=== PATIENT | female | born 1950 | race Caucasian/White ===

== ENCOUNTER → 2019-11-26 13:35 | Outpatient (BNVA) | payer MEDICARE, MEDICAID, SELFPAY | PROVIDERS: Family Provider Nurse Practitioner Family; PCP Nurse Practitioner Family; Visit Provider Nurse Practitioner Family | DX: R05 Cough (principal); J44.1 Chronic obstructive pulmonary disease with (acute) exacerbation | CPT/HCPCS: 71046 ==

== ENCOUNTER → 2021-03-16 08:05 | Outpatient (BNVA) | payer MEDICARE, MEDICAID, SELFPAY | PROVIDERS: Family Provider Nurse Practitioner Family; PCP Nurse Practitioner Family; Visit Provider Nurse Practitioner Family | DX: I10 Essential (primary) hypertension (principal); J44.9 Chronic obstructive pulmonary disease, unspecified | CPT/HCPCS: 80053; 80061; 84443; 85025 ==

== ENCOUNTER → 2021-09-07 10:15 | Outpatient (BNVA) | payer MEDICARE, MEDICAID, SELFPAY | PROVIDERS: Family Provider Nurse Practitioner Family; PCP Nurse Practitioner Family; Visit Provider Nurse Practitioner Family | DX: I10 Essential (primary) hypertension (principal) | CPT/HCPCS: 80053; 80061; 84443; 85025 ==

== ENCOUNTER → 2022-02-25 09:36 | Outpatient (BNVA) | payer MEDICARE, MEDICAID, SELFPAY | PROVIDERS: Family Provider Nurse Practitioner Family; PCP Nurse Practitioner Family; Visit Provider Nurse Practitioner Family | DX: I10 Essential (primary) hypertension (principal); J44.9 Chronic obstructive pulmonary disease, unspecified; K21.9 Gastro-esophageal reflux disease without esophagitis; J30.89 Other allergic rhinitis; Z99.81 Dependence on supplemental oxygen | CPT/HCPCS: 80053; 80061; 84443; 85025 ==

== ENCOUNTER 2022-03-02 09:04 | Emergency (ER) | payer MEDICARE, MEDICAID, SELFPAY ==
[2022-03-02 09:06] VITALS: BP 127/89; PULSE 113; RESP 22; TEMP 36.7; O2SAT 100; BMI 16.0
--- NOTE | 2022-03-02 09:06 | ED_ITS ---
HPI - SOB/Dyspnea General: Chief Complaint: Shortness of Breath/Dyspnea Stated Complaint: RESPIRATORY DISTRESS/ WHEEZING Time Seen by Provider: 03/02/22 09:06 Source: patient Mode of arrival: EMS Limitations: no limitations History of Present Illness: HPI Narrative: 71-year-old female presents to the emergency room with complaints of shortness of breath via EMS. Is progressively worsening over the last week. She still does smoke she is on 4 L by nasal cannula at home. She did receive an albuterol inhaler treatment in route but had not used any of her albuterol rescue th erapies at home prior to calling EMS. She denies any chest pain no change in sputum production or cough. No vomiting or diarrhea no fever at home. MD elicited complaint: shortness of breath and cough Pertinent past history: COPD and congestive heart failure Onset (ago): hour(s) Timing: constant Exacerbating factors: nothing Relieving factors: bronchodilators Associated symptoms: Reports chest congestion and cough; Deny abdominal pain, chest pain, diaphoresis, dizziness, extremity pain, fever(s ), hemoptysis, lightheadedness, myalgias, nausea, orthopnea, palpitations, paresthesias, polydipsia, polyuria, rash, sense of impending doom, syncope or vomiting Treatment prior to arrival: oxygen and bronchodilator Review of Systems Const: Denies: fever(s) or diaphoresis ENMT: Denies: throat pain, ear or mastoid pain, nasal discharge or nasal congestion Card: Denies: chest pain, palpitations, lightheadedness, syncope or orthopnea Resp: Reports: chest congestion; Denies: hemoptysis GI: Denies: abdominal pain, nausea or vomiting : Denies: flank pain, difficulty voiding, dysuria, urinary frequency or urinary urgency Musc: Denies: extremity pain Skin/Breast: Denies: rash or pruritus Neuro: Denies: dizziness Endo: Denies: polyuria or polydipsia PFSH ED PFSH: Medical History COPD (chronic obstructive pulmonary disease) Coronary artery disease Enrolled in chronic care management Environmental and seasonal allergies Essential hypertension Gastro-esophageal reflux disease with esophagitis GERD (gastroesophageal reflux disease) Nicotine dependence with current use Pulmonary hypertension Requires supplemental oxygen with exertion and bedtime Requires supplemental oxygen Smoker Surgical History No pertinent past surgical history Family History Family/Other CAD (coronary artery disease) Social History Smoking and tobacco status: current every day smoker Quit status (tobacco): considering quitting Alcohol intake: never Lives independently: Yes Household members: none Housing: House Marital status: / Number of children: 2 Number of grandchildren: 4 Current occupational status: disabled History of recent travel: No Current gender identity: Female Physical Exam Const: COMMON NORMALS: no acute distress GENERAL APPEARANCE: cooperative and comfortable ORIENTATION/CONSCIOUSNESS: Yes awake, Yes oriented to person, Yes oriented to place and Yes oriented to time HENMT: COMMON NORMALS: normocephalic, atraumatic and hearing grossly normal bilaterally HEAD & SCALP: normocephalic and atraumatic Neck/C-Spine: COMMON NORMALS: no JVD Resp: EFFORT & INSPECTION: Yes pursed lip breathing and Yes uses accessory muscles AUSCULTATION: rhonchi and wheezes Cardio: COMMON NORMALS: no JVD, regular rhythm and No murmurs present (Cardio) RATE: tachycardic RHYTHM: regular rhythm GI: COMMON NORMALS: Soft to palpation and No hepatosplenomegaly present AUSCULTATION: Yes normoactive bowel sounds PALPATION: Yes Soft to palpation, No Tenderness to palpation present (GI), No Guarding due to palpation present ( GI) and Yes No hepatosplenomegaly present Extremity: COMMON NORMALS: normal to inspection, capillary refill normal, no clubbing, cyanosis or edema, no calf tenderness and no pedal edema Neuro: SENSORIUM/ORIENTATION: Yes oriented to person, Yes oriented to place and Yes oriented to time Skin: COMMON NORMALS: no rashes or lesions noted GENERAL SKIN EXAM: no rashes or lesions noted Course Vital Signs: Vital signs: Vital Signs Temperature 98.1 F 03/02/22 09:06 Pulse Rate 109 H 03/02/22 10:45 Respiratory Rate 21 H 03/02/22 10:45 Blood Pressure 147/86 03/02/22 10:45 Pulse Oximetry 99 03/02/22 10:45 MDM - SOB/Dyspnea Medical Decision Making Acute exacerbation of COPD. She is doing much better after nebulizer treatments and low-dose steroids in the past with higher dose she has had a lot of side effect ipratropium for rescue nebulizer. Decrease her oxygen to 2 L/min she has been running at 4 and is retaining we titrated her down after she arrived here and she is feeling much better follow-up with primary care doctor within the week. Wwill discharge her home on lower dose also switch her to albuterol Medical Records I reviewed the patient's medical records. Lab Data I reviewed the patient's lab results. : 03/02/22 09:18 03/02/22 09:52 Labs/Radiology: Radiology Impressions Chest X-Ray 03/02/22 09:11 Impression: Atherosclerosis and hyperinflation. Laboratory Results WBC 6.2 10^3/uL (4.0-10.0) 03/02/22 09:18 RBC 4.15 10^6/uL (4.1-5.3) 03/02/22 09:18 Hgb 12.0 g/dL (11.5-15.3) 03/02/22 09:18 Hct 42.4 % (37.0-47.0) 03/02/22 09:18 MCV 102.2 fl (81-99) H 03/02/22 09:18 MCH 28.9 pg (28.0-34.0) 03/02/22 09:18 MCHC 28.3 g/dL (30.0-36.0) L 03/02/22 09:18 RDW 11.8 % (12.1-15.1) L 03/02/22 09:18 Plt Count 259 10^3/cmm (130-400) 03/02/22 09:18 MPV 10.5 fL (7.4-10.4) H 03/02/22 09:18 Neut % (Auto) 77.1 % 03/02/22 09:18 Lymph % (Auto) 12.5 % 03/02/22 09:18 Fountain % (Auto) 8.6 % 03/02/22 09:18 Eos % (Auto) 1.3 % 03/02/22 09:18 Baso % (Auto) 0.3 % 03/02/22 09:18 Neut # (Auto) 4.77 10^3/uL (1.8-7.7) 03/02/22 09:18 Lymph # (Auto) 0.8 10^3/uL (0.8-4.8) 03/02/22 09:18 Fountain # (Auto) 0.5 10^3/uL (0.2-0.9) 03/02/22 09:18 Eos # (Auto) 0.1 10^3/uL (0.0-0.8) 03/02/22 09:18 Baso # (Auto) 0.0 10^3/uL (0.0-0.1) 03/02/22 09:18 Nucleated RBC % (auto) 0 % 03/02/22 09:18 Nucleated RBCs # 0.0 /100WBC 03/02/22 09:18 Specimen Type Arterial 03/02/22 09:45 Sample Site Brachial, right 03/02/22 09:45 ABG pH 7.38 (7.35-7.45) 03/02/22 09:45 ABG pCO2 90.2 mmHg (35-45) H* 03/02/22 09:45 ABG pO2 96.5 mmHg (80.0-100.0) 03/02/22 09:45 ABG HCO3 53.7 mmol/L (22-26) H 03/02/22 09:45 ABG O2 Saturation 98.2 03/02/22 09:45 ABG Base Excess 23.9 mmol/L (-2.0-2.0) H 03/02/22 09:45 Trevor Test N/a 03/02/22 09:45 A-a O2 Gradient Not Reportable 03/02/22 09:45 Hematocrit 35.2 % (37-47) L 03/02/22 09:45 Hgb O2 Saturation 95.9 % (95-100) 03/02/22 09:45 Carboxyhemoglobin 1.5 %THgb (0.4-20.1) 03/02/22 09:45 Methemoglobin 0.8 % (0.4-1.5) 03/02/22 09:45 Total Hemoglobin 11.5 g/dL (12-16) L 03/02/22 09:45 Sodium 142.0 mmol/L (131-143) 03/02/22 09:45 Potassium 3.8 mmol/L (3.5-5.0) 03/02/22 09:45 Glucose 97.0 mg/dL (70-115) 03/02/22 09:45 Ionized Calcium 1.3 mmol/L (1.1-1.4) 03/02/22 09:45 O2 Delivery Device Nc 03/02/22 09:45 O2 Liters/Min 3.5 % 03/02/22 09:45 Java Scala Developer ID Hinja 03/02/22 09:45 Sodium 142 mmol/L (136-145) 03/02/22 09:52 Potassium 3.7 mmol/L (3.5-5.1) 03/02/22 09:52 Chloride 87 mmol/L (98-107) L 03/02/22 09:52 Carbon Dioxide > 51 mmol/L (22-29) H* 03/02/22 09:52 Anion Gap 7.7 (5-19) 03/02/22 09:52 BUN 14 mg/dL (8-23) 03/02/22 09:52 Creatinine 0.3 mg/dL (0.5-0.9) L 03/02/22 09:52 GFR Calculation 219.9 mL/min (90-130) H 03/02/22 09:52 Glucose 96 mg/dL (65-115) 03/02/22 09:52 Calculated Osmolality 294 mOsm/kg (285-295) 03/02/22 09:52 Calcium 9.3 mg/dL (8.5-10.5) 03/02/22 09:52 Discharge Plan Discharge Patient Disposition: Home Clinical Impression: Acute exacerbation of chronic obstructive airways disease Condition: Stable Prescriptions: New albuterol sulfate 2.5 mg /3 mL (0.083 %) solution for nebulization 2.5 mg inhalation Q4H PRN (Reason: shortness of breath or wheezing) Qty: 90 0RF prednisone 20 mg tablet 20 mg PO DAILY 7 Days Qty: 7 0RF No Action aspirin 81 mg tablet,chewable 81 mg PO QAM 0RF albuterol sulfate [ProAir HFA] 90 mcg/actuation HFA aerosol inhaler 2 puff INHALATION Q4H PRN (Reason: shortness of breath or wheezing) 30 Days Qty: 1 5RF Incruse Ellipta 62.5 mcg/actuation blister with device 1 inh inhalation Q24H Qty: 30 5RF albuterol sulfate 2.5 mg /3 mL (0.083 %) solution for nebulization 2.5 mg INHALATION Q4H PRN (Reason: shortness of breath or wheezing) Qty: 300 5RF loratadine 10 mg tablet 10 mg PO DAILY Qty: 30 5RF hydrochlorothiazide 12.5 mg tablet 12.5 mg PO QAM 30 Days Qty: 30 5RF (DME) continuous oxygen See Rx Instructions .ROUTE .MEDSUPPLY Qty: 1 0RF Rx Instructions: 99+ lifetime potassium chloride [Klor-Con 10] 10 mEq tablet extended release 10 meq PO DAILY Qty: 30 5RF cyanocobalamin (vitamin B-12) 1,000 mcg/mL solution 1,000 mcg SUBCUT ONCE 30 Days Qty: 1 2RF [place] Instant Breakfast Liquid 1 ea PO DAILY 0RF nitroglycerin [Nitrostat] 0.4 mg Tablet, Sublingual 0.4 mg SUBLINGUAL Q5M PRN (Reason: Chest Pain) 0RF Rx Instructions: do not exceed 3 doses per episode Systane (PF) 0.4-0.3 % Dropperette 1 drp OPHTHALMIC (EYE) DAILY PRN (Reason: Dry Eye(S)) 0RF Lumigan 0.01 % drops 1 drp ophthalmic (eye) BEDTIME PRN (Reason: pressure) 0RF Rx Instructions: right eye pantoprazole [Protonix] 40 mg tablet,delayed release (DR/EC) 40 mg PO QAM 0RF Discharge Orders: Discharge ED (Routine); Ordered 03/02/22 Ordered By: Joshua Agustin Referrals: Mercy Cuevas FNP-C [Primary Care Provider] - Discharge Diet: Usual diet Discharge Activity: Increase activity as tolerated Patient Instructions: Opioid Safety Activity Restrictions/Additional Instructions: Follow-up with your primary care doctor within the next week. Coding Level of Care Code ED Application Administrator for Janice Fwd Exam Comprehensive
--- NOTE | 2022-03-02 09:11 | ECG_ITS ---
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 Measurements Intervals [place] Rate: 119 P: 73 DC: 125 QRS: 76 QRSD: 85 T: 73 QT: 304 QTc: 428 Interpretive Statements SINUS TACHYCARDIA POSSIBLE LEFT ATRIAL ENLARGEMENT [-0.1mV P-WAVE IN V1/V2] ST changes anterior wall. Clinical correlation recommended. Possible old AWMI Compared to ECG 12/26/2015 21:27:23 Sinus rhythm no longer present Myocardial infarct finding still present Electronically Signed On 03-02-2022 16:52:53 CDT by Sumeet Jerez M.D. [id number]
--- NOTE | 2022-03-02 09:11 | XR_ITS ---
WS: [id number] Portable AP upright chest, 03/02/2022 Clinical Data: dyspnea/cough Comparison: PA and lateral chest, 11/26/2019. Findings: No nodules, masses or effusions are seen. The heart is normal. The pulmonary vascularity is not increased. No pneumonia or pneumothorax is seen. The diaphragms are flattened. The apical pleura l scarring is not changed. There are monitor leads on the chest wall. The aortic arch and descending thoracic aorta show tortuosity. XR/XR chest 1V portable [id number] Impression: Atherosclerosis and hyperinflation.
[2022-03-02 09:15] VITALS: BP 145/85; PULSE 127; RESP 20; O2SAT 100
[2022-03-02 09:35] LABS: Basophils % 0.3 %; Eosinophils # 0.1 10^3/uL (0.0-0.8); Eosinophils % 1.3 %; Hematocrit 42.4 % (37.0-47.0); Lymphocytes # 0.8 10^3/uL (0.8-4.8); Lymphocytes % 12.5 %; Mean Corpuscular HGB Conc 28.3 g/dL (30.0-36.0); Mean Corpuscular Hemoglobin 28.9 pg (28.0-34.0); Mean Corpuscular Volume 102.2 fl (81-99); Mean Platelet Volume 10.5 fL (7.4-10.4); Monocytes # 0.5 10^3/uL (0.2-0.9); Monocytes % 8.6 %; Neutrophils # 4.77 10^3/uL (1.8-7.7); Neutrophils % 77.1 %; Nucleated Red Blood Cells % 0 %; Platelet Count 259 10^3/cmm (130-400); Red Blood Count 4.15 10^6/uL (4.1-5.3); Red Cell Distribution Width 11.8 % (12.1-15.1); White Blood Count 6.2 10^3/uL (4.0-10.0)
[2022-03-02] MEDS: ipratropium-albuterol 3 mL Neb INHALATION (09:35)
[2022-03-02 09:41] VITALS: PULSE 118; RESP 18; O2SAT 100
[2022-03-02 09:45] VITALS: BP 126/88; PULSE 118; RESP 20; O2SAT 188
[2022-03-02 09:51] LABS: ABG PH Result 7.38 (7.35-7.45); Arterial Blood Gas Hematocrit 35.2 % (37-47); Base Excess ABG 23.9 mmol/L (-2.0-2.0); Blood Gas LPM 3.5 %; Blood Gas Sample Site Brachial, right; Blood Gas Sample Type Arterial; Carboxyhemoglobin 1.5 %THgb (0.4-20.1); HCO3 ABG 53.7 mmol/L (22-26); HGB O2 Sat 95.9 % (95-100); Ionized Calcium Level - ABG 1.3 mmol/L (1.1-1.4); Methemoglobin 0.8 % (0.4-1.5); Oxygen Device NC; Oxygen Saturation ABG 98.2; PO2 ABG 96.5 mmHg (80.0-100.0); Potassium Level - ABG 3.8 mmol/L (3.5-5.0); Total Hemoglobin 11.5 g/dL (12-16)
[2022-03-02 09:53] LABS: ABG PCO2 90.2 mmHg (35-45)
[2022-03-02 10:15] VITALS: BP 139/80; PULSE 109; RESP 25; O2SAT 100
[2022-03-02 10:25] LABS: Blood Urea Nitrogen 14 mg/dL (8-23); Calcium 9.3 mg/dL (8.5-10.5); Chloride 87 mmol/L (98-107); Glomerular Filtration Rate 219.9 mL/min (90-130); Glucose 96 mg/dL (65-115); Osmolality Calculated 294 mOsm/kg (285-295); Potassium 3.7 mmol/L (3.5-5.1); Sodium 142 mmol/L (136-145)
[2022-03-02 10:45] VITALS: BP 147/86; PULSE 109; RESP 21; O2SAT 99
[2022-03-02 10:48] LABS: Anion Gap 7.7 (5-19); Carbon Dioxide > 51 mmol/L (22-29)
== END 2022-03-02 11:35 | disposition home or self-care (01) ==
PROVIDERS: Emergency Provider Family Medicine; PCP Nurse Practitioner Family
DX: J44.1 Chronic obstructive pulmonary disease with (acute) exacerbation (principal); F17.210 Nicotine dependence, cigarettes, uncomplicated; Z99.81 Dependence on supplemental oxygen; Z79.82 Long term (current) use of aspirin; Z79.51 Long term (current) use of inhaled steroids
CPT/HCPCS: 36600; 71045; 80048; 80051; 82330; 82805; 85025; 93005; 94640; 96374; 99284; J2930

== ENCOUNTER → 2022-03-09 09:32 | Outpatient (BNVA) | payer MEDICARE, MEDICAID, SELFPAY | PROVIDERS: PCP Nurse Practitioner Family; Visit Provider Nurse Practitioner Family | DX: J44.9 Chronic obstructive pulmonary disease, unspecified (principal); E87.6 Hypokalemia; R71.8 Other abnormality of red blood cells; I25.118 Atherosclerotic heart disease of native coronary artery with other forms of angina pectoris; Z99.81 Dependence on supplemental oxygen | CPT/HCPCS: 80053; 82607 ==

== ENCOUNTER 2022-03-24 17:38 | Inpatient (IN) | payer MEDICARE, MEDICAID, SELFPAY ==
[2022-03-24] VITALS (8 sets, daily range): BP systolic 108–137; BP diastolic 71–91; PULSE 109–126; RESP 18–26; TEMP 36.7; O2SAT 91–100; BMI 16.0
--- NOTE | 2022-03-24 17:57 | ECG_ITS ---
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 Measurements Intervals [place] Rate: 123 P: 82 CT: 120 QRS: 72 QRSD: 88 T: 76 QT: 295 QTc: 422 Interpretive Statements SINUS TACHYCARDIA WITH OCCASIONAL VENTRICULAR PREMATURE COMPLEXES WITH OCCASIONAL SUPRAVENTRICULAR PREMATURE COMPLEXES ANTEROSEPTAL MYOCARDIAL INFARCTION , OF INDETERMINATE AGE [40+ ms Q WAVE IN V1-V4] Compared to ECG 03/02/2022 09:20:42 Ventricular premature complex(es) now present Myocardial infarct finding now present ST (T wave) deviation no longer present Electronically Signed On 03-24-2022 22:52:45 CDT by Shiva Liriano M.D. [id number]
--- NOTE | 2022-03-24 18:19 | W.ED.SOB ---
HPI - SOB/Dyspnea General: Chief Complaint: Shortness of Breath/Dyspnea Stated Complaint: RESPIRATORY DISTRESS Time Seen by Provider: 03/24/22 17:46 History of Present Illness: HPI Narrative: Ms. Allen is a 71-year-old lady with history of CAD, hypertension, history of tobaccoism, COPD with chronic hypoxic respiratory failure, and GERD presenting to the emergency department due to worsening shortness of breath. She reports more or less being at her baseline health until approximately 2 or 3 days ago. She began developing worsening heartburn and shortness of breath. She has generalized weakness and has not not been able to eat or drink anything since symptom onset. She reports some improvement with home respiratory treatments. She does have a dry cough. She reports some dyspnea at rest with marked decreased exertional tolerance. Overall intensity symptoms is moderate to severe. Course has been worsening. No other specific changes in health, exacerbating, or alleviating factors identified. EMS administered albuterol treatment x2 and Solu-Medrol 125 mg. Onset (ago): day(s) Timing: progressively worsening Severity: severe Exacerbating factors: exertion and other Relieving factors: bronchodilators Review of Systems General: Reports: 10 or more systems reviewed and unremarkable except in HPI and below PFSH ED PFSH: Medical History COPD (chronic obstructive pulmonary disease) Coronary artery disease Enrolled in chronic care management Environmental and seasonal allergies Essential hypertension Gastro-esophageal reflux disease with esophagitis GERD (gastroesophageal reflux disease) Nicotine dependence with current use Pulmonary hypertension Requires supplemental oxygen with exertion and bedtime Requires supplemental oxygen Smoker Surgical History No pertinent past surgical history Family History Family/Other CAD (coronary artery disease) Social History Smoking and tobacco status: current every day smoker Quit status (tobacco): considering quitting Alcohol intake: never Lives independently: Yes Household members: none Housing: House Marital status: / Number of children: 2 Number of grandchildren: 4 Current occupational status: disabled History of recent travel: No Current gender identity: Female Physical Exam Const: COMMON NORMALS: alert GENERAL APPEARANCE: cooperative, ill appearing and frail appearing HENMT: COMMON NORMALS: normocephalic and atraumatic HEAD & SCALP: normocephalic and atraumatic Eye: COMMON NORMALS: conjunctivae normal CONJUNCTIVA: Yes conjunctivae normal SCLERA: sclerae normal Neck/C-Spine: COMMON NORMALS: supple GENERAL: Yes trachea midline Resp: EFFORT & INSPECTION: Yes tachypneic and Yes uses accessory muscles AUSCULTATION: wheezes (Mild inspiratory and expiratory, diminished aeration) and diminished lung sounds Cardio: COMMON NORMALS: regular rhythm RATE: tachycardic RHYTHM: regular rhythm GI: COMMON NORMALS: Soft to palpation PALPATION: Yes Soft to palpation and No Tenderness to palpation present (GI) Extremity: GENERAL: Yes normal exam except as noted and Yes edema (1+ to ankles) Neuro: COMMON NORMALS: moves all extremities SENSORIUM/ORIENTATION: Yes alert and No Orientation impaired Psych: COMMON NORMALS: mental status grossly normal and Normal thought process present THOUGHT PROCESS: Normal thought process present Course ED course: - Patient was seen and evaluated by me at bedside - Patient placed on cardiac monitors, IV access obtained - Initial evaluation notable for exam as above. Increased work of breathing however patient mentating adequately. - Labs and xrays personally interpreted by me. EKG reviewed and showed sinus tachycardia without STEMI. -RT treatment ordered - Labs notable for no leukocytosis, normal hemoglobin. Metabolic panel with increased bicarb as expected with chronic CO2 retention as noted in prior ABGs that were reviewed. Delta troponin negative. D-dimer is minimally elevated and given abnormal appearance of chest x-ray CT scan ordered. - Imaging notable for abnormal appearance of right hilar region. CTA without evidence of pulmonary embolism however patient has extensive tumor with likely metastatic disease to the liver and lung. - Upon serial reexamination after treatment the patient was worsened with regards to mental status. ABG demonstrating hypercapnia. BiPAP ordered with the patient improving on ABG. I did notify patient's daughter and the patient about the results of CT imaging and likely cancer - Based on patient history, evaluation, and testing as interpreted the most likely cause of the patient's condition is COPD exacerbation, new lung cancer, and acute on chronic hypercapnic and hypoxic respiratory failure. - The results of ED evaluation were discussed with the patient including plan for admission due to requirement for level of care not available if discharged to prevent significant worsening/deterioration. - Admitting service was contacted and Dr Mobley with the hospitalist service agreed to admit the patient - Patient was admitted without further deterioration or significant events. Note: Click bubbles or prepopulated arguello in note writing are used for assistance with data collection and billing and are inherently more limited than narrative and other text portions of this note. Please use narrative for additional clinical history and defer to narrative/free test for any case of contradictory information. If information appears in only free text or click bubble it should be considered present or absent as reported. Please contact note telegraphic typewriter operator for clarifications of clinical information or contradictory information. MDM is a brief summary, contradictory or erroneous seeming information should be clarified and full note should be reviewed. Vital Signs: Vital signs: Vital Signs Temperature 97.7 F 03/25/22 07:53 Pulse Rate 122 H 03/25/22 07:57 Respiratory Rate 20 H 03/25/22 07:53 Blood Pressure 120/63 03/25/22 07:53 Pulse Oximetry 93 03/25/22 07:57 MDM - SOB/Dyspnea Medical Decision Making 71-year-old lady with history of COPD presenting with increased shortness of breath and difficulty with p.o. intake including epigastric abdominal pain. Initially mentating adequately and improved with RT treatment however subsequently deteriorating mental status. ABG notable for hypercapnia. Patient placed on BiPAP with improvement though still hypercapnic. Admitted for further management. Medical Records I reviewed the patient's medical records. Lab Data I reviewed the patient's lab results. : 03/24/22 18:13 03/24/22 18:13 Labs/Radiology: Radiology Impressions Chest X-Ray 03/24/22 18:27 IMPRESSION: 1. Increasing right hilar opacity, concerning for mass +/- pneumonia. Correlate clinically and consider CT for further evaluation. 2. Advanced emphysema. Findings discussed with and acknowledged by Gabino Lockett at 03/24/2022 7:51 PM CDT with any questions answered. Chest/Abdomen/Pelvis CT 03/24/22 18:46 IMPRESSION: 1. Confluent right hilar/mediastinal mass surrounding but not occluding the mainstem bronchus consistent with bronchogenic carcinoma. This envelops the right pulmonary artery without occlusion. There is adjacent interstitial thickening of the upper and lower lobes concerning for lymphangitic spread of tumor. 2. Additional 3.1 cm mass within the left lower lobe consistent with metastasis. 3. Advanced emphysema. IMPRESSION: 1. 2.6 cm ill-defined hypoattenuating lesion within segment 8 of the liver concerning for metastasis. This was not present in 2016. There are otherwise scattered hypodense hepatic cysts which were present in 2016 as well as a few subcentimeter hypodensities which are too small to characterize. 2. Incidental findings including sigmoid diverticulosis and 14 mm simple appearing right renal cyst. Laboratory Results WBC 7.7 10^3/uL (4.0-10.0) 03/24/22 18:13 RBC 4.19 10^6/uL (4.1-5.3) 03/24/22 18:13 Hgb 11.9 g/dL (11.5-15.3) 03/24/22 18:13 Hct 43.0 % (37.0-47.0) 03/24/22 18:13 MCV 102.6 fl (81-99) H 03/24/22 18:13 MCH 28.4 pg (28.0-34.0) 03/24/22 18:13 MCHC 27.7 g/dL (30.0-36.0) L 03/24/22 18:13 RDW 11.9 % (12.1-15.1) L 03/24/22 18:13 Plt Count 221 10^3/cmm (130-400) 03/24/22 18:13 MPV 9.7 fL (7.4-10.4) 03/24/22 18:13 Neut % (Auto) 77.2 % 03/24/22 18:13 Lymph % (Auto) 15.0 % 03/24/22 18:13 Wayne % (Auto) 6.8 % 03/24/22 18:13 Eos % (Auto) 0.5 % 03/24/22 18:13 Baso % (Auto) 0.4 % 03/24/22 18:13 Neut # (Auto) 5.97 10^3/uL (1.8-7.7) 03/24/22 18:13 Lymph # (Auto) 1.2 10^3/uL (0.8-4.8) 03/24/22 18:13 Wayne # (Auto) 0.5 10^3/uL (0.2-0.9) 03/24/22 18:13 Eos # (Auto) 0.0 10^3/uL (0.0-0.8) 03/24/22 18:13 Baso # (Auto) 0.0 10^3/uL (0.0-0.1) 03/24/22 18:13 Nucleated RBC % (auto) 0 % 03/24/22 18:13 Nucleated RBCs # 0.0 /100WBC 03/24/22 18:13 D-Dimer 0.71 ug/mIFEU (0-0.59) H 03/24/22 18:13 Specimen Type Arterial 03/24/22 22:34 Sample Site Radial, right 03/24/22 22:34 ABG pH 7.19 (7.35-7.45) L 03/24/22 22:34 ABG pCO2 138.0 mmHg (35-45) H* 03/24/22 22:34 ABG pO2 61.2 mmHg (80.0-100.0) L 03/24/22 22:34 ABG HCO3 52.6 mmol/L (22-26) H 03/24/22 22:34 ABG Base Excess 18.9 mmol/L (-2.0-2.0) H 03/24/22 22:34 Trevor Test Pos 03/24/22 22:34 Hematocrit 35.7 % (37-47) L 03/24/22 22:34 O2 Delivery Device Bipap 03/24/22 22:34 O2 Liters/Min 3.5 % 03/24/22 21:20 FiO2 50.0 % 03/24/22 22:34 Planning Division Superintendent ID Walci 03/24/22 22:34 Sodium 141 mmol/L (136-145) 03/24/22 18:13 Potassium 3.6 mmol/L (3.5-5.1) 03/24/22 18:13 Chloride 88 mmol/L (98-107) L 03/24/22 18:13 Carbon Dioxide 48 mmol/L (22-29) H* 03/24/22 18:13 Anion Gap 8.6 (5-19) 03/24/22 18:13 BUN 15 mg/dL (8-23) 03/24/22 18:13 Creatinine 0.3 mg/dL (0.5-0.9) L 03/24/22 18:13 GFR Calculation 219.9 mL/min (90-130) H 03/24/22 18:13 Glucose 118 mg/dL (65-115) H 03/24/22 18:13 Calculated Osmolality 294 mOsm/kg (285-295) 03/24/22 18:13 Calcium 9.9 mg/dL (8.5-10.5) 03/24/22 18:13 Total Bilirubin 0.5 mg/dL (0.15-1.2) 03/24/22 18:13 AST 13 U/L (0-32) 03/24/22 18:13 ALT 10 U/L (0-33) 03/24/22 18:13 Alkaline Phosphatase 87 IU/L (35-105) 03/24/22 18:13 Troponin T Baseline 17 ng/L (0-10) H 03/24/22 18:13 Troponin T 120 Minute 13.85 ng/L (0-10) H 03/24/22 21:00 Delta Troponin T -3.15 ABS# (0-10) L 03/24/22 21:00 NT-Pro-B Natriuret Pep 270 pg/mL (0-125) H 03/24/22 18:13 Total Protein 7.3 g/dL (6.6-8.7) 03/24/22 18:13 Albumin 4.1 g/dL (3.5-5.2) 03/24/22 18:13 Globulin 3.2 g/dL (1.3-4.6) 03/24/22 18:13 Lipase 13 U/L (13-60) 03/24/22 18:13 Folate > 20.0 ng/mL (4.8-37.3) 03/24/22 18:13 Critical Care Time Critical Care Time: Critical Care Time: Yes Total Critical Care Time: 45 Attestation: Due to a high probability of clinically significant, possibly life threatening deterioration, the patient required my highest level of attention and preparedness to intervene emergently and I personally spent this critical care time directly and personally managing the patient. This critical care time included obtaining a history; examining the patient; pulse oximetry; ordering and review of laboratory and imaging studies; arranging urgent treatment with development of a management plan; evaluation of patient's response to treatment; frequent reassessment; and, discussions with other providers as applicable. It was exclusive of separately billable procedures. Primary system involved is respiratory. Discharge Plan Discharge Patient Disposition: Admitted As Inpatient Admit Provider: Jenny Mobley Clinical Impression: Acute exacerbation of chronic obstructive airways disease, Acute on chronic respiratory failure with hypoxia and hypercapnia, Suspected lung cancer Condition: Stable Coding Level of Care Code ED Field Interviewer for Chg Fwd Exam Comprehensive
[2022-03-24 18:26] LABS: Basophils % 0.4 %; Eosinophils % 0.5 %; Hemoglobin 11.9 g/dL (11.5-15.3); Lymphocytes # 1.2 10^3/uL (0.8-4.8); Mean Corpuscular HGB Conc 27.7 g/dL (30.0-36.0); Mean Corpuscular Hemoglobin 28.4 pg (28.0-34.0); Mean Corpuscular Volume 102.6 fl (81-99); Mean Platelet Volume 9.7 fL (7.4-10.4); Monocytes # 0.5 10^3/uL (0.2-0.9); Monocytes % 6.8 %; Neutrophils # 5.97 10^3/uL (1.8-7.7); Neutrophils % 77.2 %; Nucleated Red Blood Cells % 0 %; Platelet Count 221 10^3/cmm (130-400); Red Blood Count 4.19 10^6/uL (4.1-5.3); Red Cell Distribution Width 11.9 % (12.1-15.1); White Blood Count 7.7 10^3/uL (4.0-10.0)
--- NOTE | 2022-03-24 18:27 | XRR_ITS ---
PROCEDURE INFORMATION: Exam: XR Chest Exam date and time: 03/24/2022 6:42 PM Age: 71 years old Clinical indication: Shortness of breath; Additional info: SOB TECHNIQUE: Imaging protocol: XR of the chest. Views: 1 view. COMPARISON: 1. CR XR chest 1V portable [id number] 03/02/2022 9:23 AM 2. CR XR chest 2V* [id number] 11/26/2019 1:[address] chest w con* [id number] 12/27/2015 2:24 PM FINDINGS: Lungs: Advanced emphysema. Interval enlargement/increasing conspicuity of right hilar mass versus developing consolidation. This is increased since March 02 and was not present November 26, 2019. There are otherwise nonspecific prominent interstitial markings within the lung bases, right greater than left. Pleural spaces: No visible pleural effusion or pneumothorax. Heart/Mediastinum: No cardiomegaly. Otherwise normal mediastinal contours. Bones/joints: Unremarkable. XR/XR chest 1V portable [id number] IMPRESSION: 1. Increasing right hilar opacity, concerning for mass +/- pneumonia. Correlate clinically and consider CT for further evaluation. 2. Advanced emphysema. Findings discussed with and acknowledged by Gabino Lockett at 03/24/2022 7:51 PM CDT with any questions answered.
[2022-03-24 18:43] LABS: D Dimer 0.71 ug/mIFEU (0-0.59)
--- NOTE | 2022-03-24 18:43 | PC.NURSE ---
RT NOT AVAILABLE. ADM DALLAS MENENDEZ.
[2022-03-24 18:44] LABS: Troponin(5th) Baseline 17 ng/L (0-10)
--- NOTE | 2022-03-24 18:46 | CTR_ITS ---
PROCEDURE INFORMATION: Exam: CTA Chest With Contrast Exam date and time: 03/24/2022 8:44 PM Age: 71 years old Clinical indication: Abdominal pain; Epigastric; Chest wall pain; Additional info: SOB, elevated ddimer, tachycardia, epigastric abd pain TECHNIQUE: Imaging protocol: Computed tomographic angiography of the chest with contrast. 3D rendering (Not supervised by radiologist): MIP and/or 3D reconstructed images were created by the technologist. Radiation optimization: All CT scans at this facility use at least one of these dose optimization techniques: automated exposure control; mA and/or kV adjustment per patient size (includes targeted exams where dose is matched to clinical indication); or iterative reconstruction. Contrast material: OMNI 300; Contrast volume: 50 ml; Contrast route: INTRAVENOUS (IV); COMPARISON: 1. CT chest w con* [id number] 12/27/2015 2:24 PM 2. CR (CHEST, ) 03/24/2022 6:42 PM 3. CR XR chest 1V portable [id number] 03/02/2022 9:23 AM 4. CR XR chest 2V* [id number] 11/26/2019 1:37 PM RADIATION DOSE METRICS: Total DLP (mGy-cm): 848.68 FINDINGS: Pulmonary arteries: Right hilar/mediastinal mass and bowel ups the right pulmonary artery without significant narrowing/occlusion. Aorta: Unremarkable. No aortic aneurysm. No aortic dissection. Lungs: See Mediastinal space finding. Pleural spaces: Trace right pleural effusion. Heart: Heart normal in size. Moderate coronary artery calcifications. No significant pericardial effusion. Mediastinal space: Confluent soft tissue mass involving the right hilum and adjacent subcarinal and precarinal spaces measuring approximately 7.7 x 6.4 x 6.3 cm as measured on axial image 231 series 2 and coronal image 20 series 602. This narrows the right mainstem bronchus without occlusion. There is adjacent interstitial thickening suggestive of lymphangitic spread of tumor. Advanced emphysema. Right hilar mass as described. 3.1 x 2.0 cm mass within the posterior left lower lobe abutting the pleura consistent with metastasis. There is chronic collapse of the medial segment of the right middle lobe which was also present in 2016. Lymph nodes: In addition to the right hilar/mediastinal mass, there are discrete enlarged mediastinal nodes including 20 mm short axis precarinal on image 24 series 2. No left hilar adenopathy. Bones/joints: Generalized osteopenia. No acute or aggressive osseous lesion. Soft tissues: Unremarkable. PROCEDURE INFORMATION: Exam: CT Abdomen And Pelvis With Contrast Exam date and time: 03/24/2022 8:44 PM Age: 71 years old Clinical indication: Abdominal pain; Epigastric; Chest wall pain; Additional info: SOB, elevated ddimer, tachycardia, epigastric abd pain TECHNIQUE: Imaging protocol: Computed tomography of the abdomen and pelvis with contrast. Radiation optimization: All CT scans at this facility use at least one of these dose optimization techniques: automated exposure control; mA and/or kV adjustment per patient size (includes targeted exams where dose is matched to clinical indication); or iterative reconstruction. Contrast material: OMNI 300; Contrast volume: 50 ml; Contrast route: INTRAVENOUS (IV); COMPARISON: CT chest w con* [id number] 12/27/2015 2:24 PM RADIATION DOSE METRICS: Total DLP (mGy-cm): 848.68 FINDINGS: Liver: There are multiple hypoattenuating liver lesions, including 2.6 cm within segment 8 on image 8 series 3 which has ill-defined margins and was not present in 2016, concerning for metastasis. Oval 4.5 x 3.0 cm circumscribed hypodense cyst within calcifications within the left lobe on image 14 series 3 was present in 2016 as were a few additional smaller cysts. Some subcentimeter hypodensities are too small to characterize. Gallbladder and bile ducts: Normal. No calcified stones. No ductal dilation. Pancreas: Normal. No ductal dilation. Spleen: Normal. No splenomegaly. Adrenal glands: Normal. No mass. Kidneys and ureters: No hydronephrosis. No enhancing renal mass. 14 mm right lower pole hypodense simple cyst. Stomach and bowel: No bowel obstruction. Sigmoid diverticulosis without active diverticulitis. Appendix: No evidence of appendicitis. Intraperitoneal space: No free air. No significant fluid collection. Vasculature: Scattered atherosclerotic calcification. No aneurysm. Lymph nodes: Unremarkable. No enlarged lymph nodes. Urinary bladder: Unremarkable as visualized. Reproductive: Unremarkable as visualized. Bones/joints: Lumbar degenerative changes. Osteopenia. No evidence of acute or aggressive osseous lesion. Soft tissues: Unremarkable. CT/CT angio chest w abd pel w con IMPRESSION: 1. Confluent right hilar/mediastinal mass surrounding but not occluding the mainstem bronchus consistent with bronchogenic carcinoma. This envelops the right pulmonary artery without occlusion. There is adjacent interstitial thickening of the upper and lower lobes concerning for lymphangitic spread of tumor. 2. Additional 3.1 cm mass within the left lower lobe consistent with metastasis. 3. Advanced emphysema. IMPRESSION: 1. 2.6 cm ill-defined hypoattenuating lesion within segment 8 of the liver concerning for metastasis. This was not present in 2016. There are otherwise scattered hypodense hepatic cysts which were present in 2016 as well as a few subcentimeter hypodensities which are too small to characterize. 2. Incidental findings including sigmoid diverticulosis and 14 mm simple appearing right renal cyst.
[2022-03-24 18:53] LABS: Alanine Aminotransferase 10 U/L (0-33); Albumin Level 4.1 g/dL (3.5-5.2); Alkaline Phosphatase 87 IU/L (35-105); Anion Gap 8.6 (5-19); Aspartate Amino Transferase 13 U/L (0-32); Blood Urea Nitrogen 15 mg/dL (8-23); Calcium 9.9 mg/dL (8.5-10.5); Chloride 88 mmol/L (98-107); Globulin 3.2 g/dL (1.3-4.6); Glomerular Filtration Rate 219.9 mL/min (90-130); Glucose 118 mg/dL (65-115); Lipase 13 U/L (13-60); NT Pro B Type Natriuretic Pept 270 pg/mL (0-125); Osmolality Calculated 294 mOsm/kg (285-295); Potassium 3.6 mmol/L (3.5-5.1); Sodium 141 mmol/L (136-145); Total Bilirubin 0.5 mg/dL (0.15-1.2); Total Protein 7.3 g/dL (6.6-8.7)
[2022-03-24 18:55] LABS: Carbon Dioxide 48 mmol/L (22-29)
[2022-03-24] MEDS: iohexol 300 mg/mL 100 mL Btl IV (20:50)
[2022-03-24 21:24] LABS: Troponin 5 2HR 13.85 ng/L (0-10)
[2022-03-24 21:30] LABS: Troponin 5 2HR Delta -3.15 ABS# (0-10)
[2022-03-24 21:31] LABS: Arterial Blood Gas Hematocrit 38.3 % (37-47); Base Excess ABG 20.1 mmol/L (-2.0-2.0); Blood Gas Allen Test Pos; Blood Gas LPM 3.5 %; Blood Gas Operator Identificat WALCI; Blood Gas Sample Site Radial, right; Blood Gas Sample Type Arterial; HCO3 ABG 55.3 mmol/L (22-26); Oxygen Device NC; PO2 ABG 64.3 mmHg (80.0-100.0)
[2022-03-24 21:32] LABS: ABG PH Result 7.16 (7.35-7.45)
[2022-03-24] MEDS: sodium chloride 0.9% 1,000 ML 999 ML IV (21:33)
[2022-03-24] MEDS: levofloxacin-dextrose 5 % 750 MG/150 ML PREMIX 100 MG IV (22:36)
[2022-03-24 22:46] LABS: ABG PH Result 7.19 (7.35-7.45); Arterial Blood Gas Hematocrit 35.7 % (37-47); Base Excess ABG 18.9 mmol/L (-2.0-2.0); Blood Gas Allen Test Pos; Blood Gas Operator Identificat WALCI; Blood Gas Sample Site Radial, right; Blood Gas Sample Type Arterial; HCO3 ABG 52.6 mmol/L (22-26); Oxygen Device BIPAP; PO2 ABG 61.2 mmHg (80.0-100.0)
--- NOTE | 2022-03-24 23:54 | P.HP_ITS ---
Providers/Chief Complaint Primary Care Provider: MISAEL Jiménez Chief Complaint: RESPIRATORY DISTRESS History of Present Illness The patient is a 71-year-old female with known history of COPD for which she is O2 dependent 2.5 L, current smoker who presents with chief complaint of 72 hour history of progressive dyspnea. The patient admits to onset of wheeze, myalgia. She denies fever, rigors, nausea, vomiting, cough, abdominal pain, diarrhea, chest pain. She admits to right lower extremity edema. The patient is quite dyspneic and some to most of the history of present illness is provided by the patient?s daughter. She presents for further evaluation Review of Systems General: Reports: 10 or more systems reviewed and unremarkable except in HPI and below Medications/Allergies Home Medications Medication Instructions Recorded Confirmed Last Taken Type aspirin 81 mg chewable tablet 81 mg PO QAM tab 11/13/19 03/24/22 03/24/22 History albuterol sulfate 2.5 mg (3 mL) INHALATION Q4H PRN 02/25/22 03/24/22 Unknown Rx #300 ml albuterol sulfate 90 mcg/actuation 2 puff INHALATION Q4H PRN 30 Days 02/25/22 03/24/22 Unknown Rx aerosol inhaler (ProAir HFA) #1 each continuous oxygen #1 ea 02/25/22 03/24/22 Unknown Rx hydrochlorothiazide 12.5 mg tablet 12.5 mg PO QAM 30 Days #30 tab 02/25/22 03/24/22 03/24/22 Rx loratadine 10 mg tablet 10 mg PO DAILY #30 tab 02/25/22 03/24/22 03/24/22 Rx umeclidinium 62.5 mcg/actuation 1 inh INHALATION Q24H #30 ea 02/25/22 03/24/22 03/24/22 Rx blister powder for inhalation (Incruse Ellipta) potassium chloride 10 mEq 10 meq PO DAILY #30 tab 02/28/22 03/24/22 03/01/22 Rx tablet,extended release (Klor-Con) see pharmacy comment bimatoprost 0.01 % eye drops 1 drp OPHTHALMIC (EYE) BEDTIME PRN 03/02/22 03/24/22 02/27/22 History (Riki) nutritional supplements 1 ea PO DAILY 03/02/22 03/24/2222 History pantoprazole 40 mg tablet,delayed 40 mg PO QAM 03/02/22 03/24/22 03/23/22 History release (Protonix) peg 400-propylene glycol (PF) 0.4 1 drp OPHTHALMIC (EYE) DAILY PRN 03/02/22 03/24/22 Unknown History %-0.3 % eye drops in a dropperette (Systane (PF)) nitroglycerin 0.4 mg sublingual 0.4 mg SUBLINGUAL Q5M PRN #30 tab 03/09/22 03/24/22 Unknown Rx tablet (Nitrostat) cyanocobalamin (vitamin B-12) 1,000 mcg SUBCUT Q30D 03/24/22 03/24/22 Unknown History 1,000 mcg/mL injection solution cyanocobalamin (vitamin B-12) 500 500 mcg PO DAILY 03/24/22 03/24/22 03/24/22 History mcg tablet (Vitamin B-12) Allergies Allergy/AdvReac Type Severity Reaction Status Date / Time doxycycline Allergy Unknown Unknown Verified 03/09/22 09:01 Penicillins Allergy Unknown Unknown Verified 03/09/22 09:01 PFSH Acute PFSH: Medical History COPD (chronic obstructive pulmonary disease) Coronary artery disease Enrolled in chronic care management Environmental and seasonal allergies Essential hypertension Gastro-esophageal reflux disease with esophagitis GERD (gastroesophageal reflux disease) Nicotine dependence with current use Pulmonary hypertension Requires supplemental oxygen with exertion and bedtime Requires supplemental oxygen Smoker Surgical History No pertinent past surgical history Family History Family/Other CAD (coronary artery disease) Social History Smoking and tobacco status: current every day smoker Quit status (tobacco): considering quitting Alcohol intake: never Lives independently: Yes Household members: none Housing: House Marital status: / Number of children: 2 Number of grandchildren: 4 Current occupational status: disabled History of recent travel: No Current gender identity: Female Vitals/I&O/Wt Last Vital Signs Temp 98.1 F 03/24/22 17:45 Pulse 118 H 03/24/22 22:59 Resp 19 H 03/24/22 21:56 BP 137/77 03/24/22 21:50 Pulse Ox 91 03/24/22 22:59 03/24/22 03/24/22 03/25/22 14:59 22:59 06:59 Intake Total 1000 / 1000 Balance 1000 / 1000 Weight last 48 hrs Weight 42.184 kg Physical Exam Narrative: General: -Alert -No acute distress -No dyspnea -No tachypnea Head: -Atraumatic -Normocephalic Eyes: -Pupils equally round and reactive to light and accommodation -Extraocular muscles intact Neurological: -Cranial nerves II-XII intact Neck: -No jugular venous distention -No thyromegaly -No cervical lymphadenopathy Heart: -Regular rate -Regular rhythm -No murmurs -No gallops -No rubs Lungs: -No wheeze -No rhonchi -No rales ? Abdomen: -Normal bowel sounds in all four quadrants -No rebound -No guarding -No tenderness Extremities: -2/4 pulse in all four extremities -No clubbing -No cyanosis -No edema -No calf tenderness present bilaterally -Negative Zoey?s sign bilaterally Musculoskeletal: -5/5 bilateral upper extremity strength -5/5 bilateral lower extremity strength -Sensorium of bilateral upper extremities are equal and intact -Sensorium of bilateral lower extremities are equal and intact ? Additional Details / Additional Findings / Exceptions / Miscellaneous: Data : 03/24/22 18:13 03/24/22 18:13 A&P Assessment and plan (1) Acute exacerbation of chronic obstructive airways disease: Status: Acute Plan COPD exacerbation. Patient is typically O2 dependent 2.5 L/min via nasal cannula. Solu-Medrol 80 Mill grams IV every 8 hours plus DuoNeb every 4 hours plus Levaquin 500 Mill cans IV daily plus singular 10 Mill grams by mouth daily plus Claritin 10 Mill grams by mouth daily. The patient is currently on BiPAP. Will check ABG intermittently and adjust BiPAP settings accordingly Pulmonary hypertension Right hilar mass and left lower lobe pulmonary mass with what appears to be hepatic metastasis. We may consider request for consultation by pulmonology for bronchoscopy once the patient's respiratory status has improved. Patient will likely require follow-up with hematology/oncology upon discharge especially given her smoking history Osteopenia Macrocytosis. Currently pending: TSH, free T4, B12, foot level Elevated troponin, rule out ACS. Patient provides no signs or symptoms of ACS. Troponin elevation likely due to cardiac strain due to hypoxemia. Will monitor patient on telemetry and checks her cardiac enzymes. Recheck EKG on the morning of Mar 25 2000.2 Diverticulosis Seasonal allergies. Claritin 10 Mill grams by mouth daily Glaucoma Coronary artery disease GERD. Protonix 40 Mill grams by mouth daily Hyperlipidemia Hypertension Smoker. The patient becomes regarding smoking cessation cessation DVT Proflex is. Bilateral SCD Attestations Medical Necessity Statement*: the patient's anticipated length of stay is greater than 2 minutes for treatment of her COPD exacerbation Coding Level of Care Code Acute Tank House Supervisor for Janice Alfredo Diagnoses Acute exacerbation of chronic obstructive airways disease J44.1
[2022-03-25] VITALS (22 sets, daily range): BP systolic 94–120; BP diastolic 55–70; PULSE 89–126; RESP 18–36; TEMP 36.4–36.5; O2SAT 85–100; BMI 16.1
[2022-03-25 01:12] LABS: Thyroid Stimulating Hormone 1.03 uIU/mL (0.27-4.20); Vitamin B12 1061 pg/mL (232-1245)
[2022-03-25] MEDS: ipratropium-albuterol 3 mL Neb INHALATION ×6 (01:31→20:41)
[2022-03-25 01:38] LABS: Free T4 Free Thyroxine 1.23 ng/dL (0.82-1.77)
[2022-03-25 01:49] LABS: Folate Level > 20.0 ng/mL (4.8-37.3)
--- NOTE | 2022-03-25 01:52 | ECG_ITS ---
[facility] Test Date: 2022-03-25 Pat Name: Frida Allen Department: Room: 278 Gender: Female It Service Delivery Manager: : 1950 Requested By: Jenny Mobley Order Number: [id number] Krishna MD: Areli Butterfield M.D. Measurements Intervals [place] Rate: 110 P: 79 [place]: 137 QRS: 72 QRSD: 74 T: 81 QT: 333 QTc: 451 Interpretive Statements SINUS TACHYCARDIA WITH OCCASIONAL VENTRICULAR PREMATURE COMPLEXES POSSIBLE LEFT ATRIAL ENLARGEMENT [-0.1mV P-WAVE IN V1/V2] ANTEROSEPTAL MYOCARDIAL INFARCTION , OF INDETERMINATE AGE [40+ ms Q WAVE IN V1-V4] Compared to ECG 03/25/2022 00:25:37 Ventricular premature complex(es) now present Short [place] interval no longer present Myocardial infarct finding still present Electronically Signed On 03-25-2022 16:36:20 CDT by Areli Butterfield M.D. [id number]
[2022-03-25 02:00] LABS: Urine Appearance Clear (CLEAR); Urine Color Yellow (Yellow); pH Urine 5 (5-7)
[2022-03-25 02:01] LABS: Add Urine Microscopic? YES; Bilirubin Urine Neg (Negative); Blood Urine 2+ (Negative); Glucose Urine UA Norm (Normal); Ketones Urine Negative (Negative); Leukocyte Esterase Urine Negative (Negative); Nitrate Urine Positive (Negative); Protein Urine 1+ (Negative); Urobilinogen Urine Norm (Negative)
[2022-03-25 02:04] LABS: Add Urine Culture? Yes; Bacteria Urine 3+ /hpf; Mucus Urine TRACE /hpf; RBC Urine 0-4 /hpf (0-2); Squamous Epithelial Cell Urine 0-4 /hpf (0-5); WBC Urine 0-4 /hpf (0-5)
[2022-03-25 02:49] LABS: ABG PH Result 7.21 (7.35-7.45); Alveolar-Arterial Oxygen Gradi 21.6 mmHg (5-10); Arterial Blood Gas Hematocrit 34.9 % (37-47); Blood Gas Allen Test Pos; Blood Gas Operator Identificat WALCI; Blood Gas Sample Site Radial, left; Blood Gas Sample Type Arterial; Carboxyhemoglobin 1.5 %THgb (0.4-20.1); HCO3 ABG 51.8 mmol/L (22-26); HGB O2 Sat 95.6 % (95-100); Ionized Calcium Level - ABG 1.3 mmol/L (1.1-1.4); Methemoglobin 0.9 % (0.4-1.5); Oxygen Device BIPAP; Oxygen Saturation ABG 97.9; Potassium Level - ABG 3.8 mmol/L (3.5-5.0); Total Hemoglobin 11.4 g/dL (12-16)
[2022-03-25 04:31] LABS: ABG PH Result 7.22 (7.35-7.45); Alveolar-Arterial Oxygen Gradi 16.4 mmHg (5-10); Arterial Blood Gas Hematocrit 35.2 % (37-47); Base Excess ABG 19.6 mmol/L (-2.0-2.0); Blood Gas Allen Test Pos; Blood Gas Operator Identificat WALCI; Blood Gas Sample Site Radial, right; Blood Gas Sample Type Arterial; Carboxyhemoglobin 1.6 %THgb (0.4-20.1); HCO3 ABG 52.4 mmol/L (22-26); HGB O2 Sat 92.2 % (95-100); Ionized Calcium Level - ABG 1.3 mmol/L (1.1-1.4); Methemoglobin 1.1 % (0.4-1.5); Oxygen Saturation ABG 94.8; PO2 ABG 77.2 mmHg (80.0-100.0); Total Hemoglobin 11.5 g/dL (12-16)
--- NOTE | 2022-03-25 05:52 | ECG_ITS ---
[facility] Test Date: 2022-03-25 Pat Name: Frida Allen Department: Room: 278 Gender: Female Nurses Medical Assistants Phlebotomists: : 1950 Requested By: Jenny Mobley Order Number: [id number] Krishna MD: Areli Butterfield M.D. Measurements Intervals [place] Rate: 116 P: 79 ME: 108 QRS: 77 QRSD: 87 T: 84 QT: 342 QTc: 475 Interpretive Statements SINUS TACHYCARDIA WITH SHORT ME INTERVAL POSSIBLE LEFT ATRIAL ENLARGEMENT [-0.1mV P-WAVE IN V1/V2] ANTEROSEPTAL MYOCARDIAL INFARCTION , OF INDETERMINATE AGE [40+ ms Q WAVE IN V1-V4] Compared to ECG 03/24/2022 18:05:48 Short [place] interval now present Ventricular premature complex(es) no longer present Myocardial infarct finding still present Electronically Signed On 03-25-2022 16:39:06 CDT by Areli Butterfield M.D. [id number]
--- NOTE | 2022-03-25 09:17 | P.PN_ITS ---
Subjective Subjective: Patient was seen and examined this morning, she is on BiPAP, I increased her FiO2 to 100%, discussed clinical findings with the patient and her daughter, patient does not want to pursue histopathological diagnosis chemoradiotherapy, she is leaning towards initiating comfort care/hospice. I did explain in detail why intubation would be needed if she becomes severely hypoxic, right now she is using her shoulder girdle to breathe she is cachectic and malnourished She is able to comprehend all my questions or concerns All questions were answered She requested to call her family to discuss in detail It seems like she has stage IV lung cancer with mets to liver with poor prognosis, Vitals/I&O/Wt Last Vital Signs Temp 97.7 F 03/25/22 07:53 Pulse 122 H 03/25/22 07:57 Resp 20 H 03/25/22 07:53 BP 120/63 03/25/22 07:53 Pulse Ox 93 03/25/22 07:57 03/24/22 03/25/22 03/25/22 22:59 06:59 14:59 Intake Total 1000 / 1000 150 / 1150 Balance 1000 / 1000 150 / 1150 Weight last 48 hrs Weight 42.638 kg Weight 42.184 kg Physical Exam Narrative: Patient is cachectic and malnourished Currently using respiratory sensory muscles on BiPAP I increased her FiO2 100% BiPAP settings 14 's S1, S2 sinus tachycardia heart rate 130s She is cachectic and malnourished No signs of fluid overload Able to comprehend my question concern EOMI, PERRLA Nonfocal neuro exam Data : 03/24/22 18:13 03/24/22 18:13 A&P Assessment and plan (1) Acute exacerbation of chronic obstructive airways disease: Status: Acute (2) Acute on chronic respiratory failure with hypoxia and hypercapnia: Status: Acute (3) Suspected lung cancer: Status: Acute (4) Coronary artery disease: Status: Acute Qualifiers: Coronary Disease-Associated Artery/Lesion type: unspecified vessel or lesion type [place] vs. transplanted heart: [place] heart Associated angina: with stable angina Qualified Code(s): I25.118 - Atherosclerotic heart disease of [place] coronary artery with other forms of angina pectoris (5) Smoker: Status: Acute (6) Requires supplemental oxygen: Status: Acute (7) COPD (chronic obstructive pulmonary disease): Status: Chronic Qualifiers: COPD type: unspecified COPD Qualified Code(s): J44.9 - Chronic obstructive pulmonary disease, unspecified Plan Lung mass, bilateral Mets to liver This most likely is lung cancer, stage IV cancer, Patient does not want to pursue histopathological diagnosis chemoradiotherapy She would like to discuss further plan with her family for now she is leaning towards comfort/hospice care She is DNR/DNI We will give her morphine for anxiety She is an active smoker Carries history of family hypertension as well, cachectic and malnourished Carries guarded prognosis Type IIMI DNR/DNI DVT prophylaxis currently on Lovenox We will keep her on clear liquid diet on BiPAP Attestations Medical Necessity Statement*: Guarded prognosis Time Spent in Patient Care: 40mins Coding Level of Care Code Acute Profile Saw Setup Operator for Janice Alfredo Diagnoses Acute exacerbation of chronic obstructive airways disease J44.1 Acute on chronic respiratory failure with hypoxia and hypercapnia J96.21; J96.22 Suspected lung cancer R68.89 Coronary artery disease I25.118 Coronary Disease-Associated Artery/Lesion type: unspecified vessel or lesion type [place] vs. transplanted heart: [place] heart Associated angina: with stable angina Smoker F17.200 Requires supplemental oxygen Z99.81 COPD (chronic obstructive pulmonary disease) J44.9 COPD type: unspecified COPD
[2022-03-25 10:24] LABS: ABG PH Result 7.33 (7.35-7.45); Arterial Blood Gas Hematocrit 35.2 % (37-47); Base Excess ABG 22.3 mmol/L (-2.0-2.0); Blood Gas Allen Test Pos; Blood Gas LPM 2.5 %; Blood Gas Operator Identificat ED; Blood Gas Sample Site Radial, left; Blood Gas Sample Type Arterial; HCO3 ABG 53.2 mmol/L (22-26); Oxygen Device NC; Oxygen Saturation ABG 88.9; PO2 ABG 53.1 mmHg (80.0-100.0); Potassium Level - ABG 4.2 mmol/L (3.5-5.0)
[2022-03-25 10:25] LABS: Carboxyhemoglobin 1.5 %THgb (0.4-20.1); HGB O2 Sat 86.8 % (95-100); Ionized Calcium Level - ABG 1.3 mmol/L (1.1-1.4); Methemoglobin 0.8 % (0.4-1.5); Total Hemoglobin 11.5 g/dL (12-16)
--- NOTE | 2022-03-25 12:07 | PC.RESP ---
Dr. oJhnson placed comfort care orders for patient. Comfort care orders stated to take patient off of bipap and place on 2LPM NC for comfort. Therapist talked to nurse and called Dr. Johnson to verify before taking anything off of pt. stated that family wanted to continue bipap and Q4 treatments. Therapist went into pt room and family stated that bipap and Q4 treatments were to be continued. nothing was removed from patient and patient is still on bipap and taking treatments as ordered.
[2022-03-25] MEDS: morphine 4 mg/mL SDV 1 mL 2 MG IVP (12:24)
--- NOTE | 2022-03-25 20:10 | PC.NURSE ---
Pt lying in bed resting with eyes closed. Pt resp even and non-labored pt on bi-pap. Pt had no c/o pain or discomfort at the present time. No needs voiced at the present time. Call light in reach. Family at bedside.
[2022-03-25] MEDS: morphine 4 mg/mL SDV 1 mL IVP ×2 (20:42→23:45)
[2022-03-26] VITALS (21 sets, daily range): BP systolic 123–137; BP diastolic 71–85; PULSE 104–127; RESP 17–26; TEMP 36.3; O2SAT 92–100
[2022-03-26] MEDS: ipratropium-albuterol 3 mL Neb INHALATION ×7 (00:19→23:14)
[2022-03-26] MEDS: morphine 4 mg/mL SDV 1 mL IVP ×3 (09:41→23:46)
--- NOTE | 2022-03-26 11:18 | PM.PN ---
Subjective Subjective: This morning had discussion in detail regarding further plans, I did give him option to go home on home hospice versus assisted, patient is stating that she would like to have 1 more day to think about it, She had a rough night, struggles to breathe, she was evaluated by nurses multiple times, this morning she is calm, she is well aware that she has stage IV cancer, she does not want to go to any assisted, she was asking me if she could stay in the hospital on BiPAP Vitals/I&O/Wt Last Vital Signs Temp 97.7 F 03/25/22 07:53 Pulse 108 H 03/26/22 07:55 Resp 22 H 03/26/22 09:41 BP 123/71 03/26/22 01:24 Pulse Ox 98 03/26/22 07:48 03/25/22 03/26/22 03/26/22 22:59 06:59 14:59 Intake Total 0 / 0 0 / 0 Output Total 400 / 650 Balance 0 / -250 -400 / -650 Weight last 48 hrs Weight 42.638 kg Weight 42.184 kg Physical Exam Narrative: Patient is showing signs of respiratory distress on BiPAP FiO2 35% Saturating 94% Heart rate 120s Cachectic, malnourished Use of respiratory sensory muscles Awake and alert No signs of focal deficit S1, S2 sinus tachycardia Data : 03/24/22 18:13 03/24/22 18:13 A&P Assessment and plan (1) Acute exacerbation of chronic obstructive airways disease: Status: Acute (2) Suspected lung cancer: Status: Acute (3) Acute on chronic respiratory failure with hypoxia and hypercapnia: Status: Acute (4) Smoker: Status: Acute Plan Stage IV lung cancer Mets to liver Patient is currently BiPAP dependent Still showing signs of respiratory distress Patient and family well aware that BiPAP is keeping her alive as soon as we take her BiPAP she might become more hypoxic and going to respiratory arrest She lives 45 minutes away, She is asking for 1 more day to make a decision regarding her disposition plan We might be able to arrange ambulance transport with BiPAP to her home Continue comfort care management for now Daughter at the bedside Attestations Medical Necessity Statement*: Comfort care Time Spent in Patient Care: 25mins Coding Level of Care Code Acute Religion Department Chair for Janice Alfredo Diagnoses Acute exacerbation of chronic obstructive airways disease J44.1 Suspected lung cancer R68.89 Acute on chronic respiratory failure with hypoxia and hypercapnia J96.21; J96.22 Smoker F17.200
[2022-03-27] VITALS (11 sets, daily range): BP systolic 128; BP diastolic 74; PULSE 94–131; RESP 19–35; TEMP 36.2; O2SAT 88–98
[2022-03-27] MEDS: ipratropium-albuterol 3 mL Neb INHALATION ×3 (03:37→11:26)
[2022-03-27] MEDS: LORazepam 2 mg/mL INJ 1 mL IVP (03:58)
[2022-03-27] MEDS: morphine 4 mg/mL SDV 1 mL IVP (03:58)
--- NOTE | 2022-03-27 08:44 | PM.DCS ---
Discharge Providers Date of Admission: 03/24/22 23:51 Date of Discharge: March 27, 2022 Attending Provider at Admission: Jenny Mobley DO Attending Provider at Discharge: Caleb Johnson MD Primary Care Provider: MISAEL Jiménez Diagnoses at Discharge Discharge Diagnosis (1) Acute exacerbation of chronic obstructive airways disease: Status: Acute (2) Suspected lung cancer: Status: Acute (3) Acute on chronic respiratory failure with hypoxia and hypercapnia: Status: Acute (4) Smoker: Status: Acute Reason for Visit Reason for Visit: RESPIRATORY DISTRESS Hospital Course Hospital Course 71-year-old who has history of oxygen dependent COPD, active smoker, presented with chief complaint of progressive dyspnea. 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 Patient and family opted against histopathological diagnosis as she would not agree for chemo or radiotherapy. Patient was using her respiratory accessory muscles, however she was awake and alert and able to make decisions, she decided against any aggressive intervention. After discussion with her family she opted for hospice care at home. Initially she was afraid to pass away at home however she changed her mind over the weekend. We will arrange for transportation with BiPAP in the ambulance. She lives 45 minutes away. Home hospice arranged. clinical operations manager Carla updated. She carries guarded prognosis, as soon as we take of her BiPAP her oxygen level drops to low 80s. She is being discharged home with hospice care. Physical Exam Narrative: Cachectic malnourished Drowsy after getting opioids Does use shoulder girdle, she does have increased work of breathing despite being on BiPAP Muscle mass loss She does not have any active neurological deficits S1, S2 sinus tachycardia Dehydrated Abdomen is soft Diminished bilateral airflow despite being on BiPAP Discharge Data Studies Completed and Pending Completed Studies During Hospitalization Category Date Time Status CTA chest CT abdomen pelvis [CT angio chest w abd pel w Cat Scan 03/24/22 18:46 Completed con] Urgent XR chest 1V portable [id number] Urgent Exams 03/24/22 18:27 Completed Pending at discharge Category Date Time Status ABG FULL [Arterial Blood Gas Full] Routine Lab 03/25/22 04:20 Results ABG FULL [Arterial Blood Gas Full] Routine Lab 03/25/22 07:41 Results Urine Culture Stat Lab 03/25/22 01:40 Results Radiology Impressions Chest X-Ray 03/24/22 18:27 IMPRESSION: 1. Increasing right hilar opacity, concerning for mass +/- pneumonia. Correlate clinically and consider CT for further evaluation. 2. Advanced emphysema. Findings discussed with and acknowledged by Gabino Lockett at 03/24/2022 7:51 PM CDT with any questions answered. Chest/Abdomen/Pelvis CT 03/24/22 18:46 IMPRESSION: 1. Confluent right hilar/mediastinal mass surrounding but not occluding the mainstem bronchus consistent with bronchogenic carcinoma. This envelops the right pulmonary artery without occlusion. There is adjacent interstitial thickening of the upper and lower lobes concerning for lymphangitic spread of tumor. 2. Additional 3.1 cm mass within the left lower lobe consistent with metastasis. 3. Advanced emphysema. IMPRESSION: 1. 2.6 cm ill-defined hypoattenuating lesion within segment 8 of the liver concerning for metastasis. This was not present in 2016. There are otherwise scattered hypodense hepatic cysts which were present in 2016 as well as a few subcentimeter hypodensities which are too small to characterize. 2. Incidental findings including sigmoid diverticulosis and 14 mm simple appearing right renal cyst. Laboratory Results WBC 7.7 10^3/uL (4.0-10.0) 03/24/22 18:13 RBC 4.19 10^6/uL (4.1-5.3) 03/24/22 18:13 Hgb 11.9 g/dL (11.5-15.3) 03/24/22 18:13 Hct 43.0 % (37.0-47.0) 03/24/22 18:13 MCV 102.6 fl (81-99) H 03/24/22 18:13 MCH 28.4 pg (28.0-34.0) 03/24/22 18:13 MCHC 27.7 g/dL (30.0-36.0) L 03/24/22 18:13 RDW 11.9 % (12.1-15.1) L 03/24/22 18:13 Plt Count 221 10^3/cmm (130-400) 03/24/22 18:13 MPV 9.7 fL (7.4-10.4) 03/24/22 18:13 Neut % (Auto) 77.2 % 03/24/22 18:13 Lymph % (Auto) 15.0 % 03/24/22 18:13 [place] % (Auto) 6.8 % 03/24/22 18:13 Eos % (Auto) 0.5 % 03/24/22 18:13 Baso % (Auto) 0.4 % 03/24/22 18:13 Neut # (Auto) 5.97 10^3/uL (1.8-7.7) 03/24/22 18:13 Lymph # (Auto) 1.2 10^3/uL (0.8-4.8) 03/24/22 18:13 [place] # (Auto) 0.5 10^3/uL (0.2-0.9) 03/24/22 18:13 Eos # (Auto) 0.0 10^3/uL (0.0-0.8) 03/24/22 18:13 Baso # (Auto) 0.0 10^3/uL (0.0-0.1) 03/24/22 18:13 Nucleated RBC % (auto) 0 % 03/24/22 18:13 Nucleated RBCs # 0.0 /100WBC 03/24/22 18:13 D-Dimer 0.71 ug/mIFEU (0-0.59) H 03/24/22 18:13 Specimen Type Arterial 03/25/22 07:41 Sample Site Radial, left 03/25/22 07:41 ABG pH 7.33 (7.35-7.45) L 03/25/22 07:41 ABG pCO2 102.0 mmHg (35-45) H* 03/25/22 07:41 ABG pO2 53.1 mmHg (80.0-100.0) L 03/25/22 07:41 ABG HCO3 53.2 mmol/L (22-26) H 03/25/22 07:41 ABG O2 Saturation 88.9 03/25/22 07:41 ABG Base Excess 22.3 mmol/L (-2.0-2.0) H 03/25/22 07:41 Trevor Test Pos 03/25/22 07:41 A-a O2 Gradient 16.4 mmHg (5-10) H 03/25/22 04:20 Hematocrit 35.2 % (37-47) L 03/25/22 07:41 Hgb O2 Saturation 86.8 % (95-100) L 03/25/22 07:41 Carboxyhemoglobin 1.5 %THgb (0.4-20.1) 03/25/22 07:41 Methemoglobin 0.8 % (0.4-1.5) 03/25/22 07:41 Total Hemoglobin 11.5 g/dL (12-16) L 03/25/22 07:41 Sodium 142.0 mmol/L (131-143) 03/25/22 07:41 Potassium 4.2 mmol/L (3.5-5.0) 03/25/22 07:41 Glucose 110.0 mg/dL (70-115) 03/25/22 07:41 Ionized Calcium 1.3 mmol/L (1.1-1.4) 03/25/22 07:41 O2 Delivery Device Nc 03/25/22 07:41 O2 Liters/Min 2.5 % 03/25/22 07:41 FiO2 50.0 % 03/25/22 04:20 Pacs Specialist ID Ed 03/25/22 07:41 Sodium 141 mmol/L (136-145) 03/24/22 18:13 Potassium 3.6 mmol/L (3.5-5.1) 03/24/22 18:13 Chloride 88 mmol/L (98-107) L 03/24/22 18:13 Carbon Dioxide 48 mmol/L (22-29) H* 03/24/22 18:13 Anion Gap 8.6 (5-19) 03/24/22 18:13 BUN 15 mg/dL (8-23) 03/24/22 18:13 Creatinine 0.3 mg/dL (0.5-0.9) L 03/24/22 18:13 GFR Calculation 219.9 mL/min (90-130) H 03/24/22 18:13 Glucose 118 mg/dL (65-115) H 03/24/22 18:13 Calculated Osmolality 294 mOsm/kg (285-295) 03/24/22 18:13 Calcium 9.9 mg/dL (8.5-10.5) 03/24/22 18:13 Total Bilirubin 0.5 mg/dL (0.15-1.2) 03/24/22 18:13 AST 13 U/L (0-32) 03/24/22 18:13 ALT 10 U/L (0-33) 03/24/22 18:13 Alkaline Phosphatase 87 IU/L (35-105) 03/24/22 18:13 Troponin T Baseline 17 ng/L (0-10) H 03/24/22 18:13 Troponin T 120 Minute 13.85 ng/L (0-10) H 03/24/22 21:00 Delta Troponin T -3.15 ABS# (0-10) L 03/24/22 21:00 Troponin T Hi Sens 6Hr 15.40 ng/L (0-10) H 03/25/22 00:32 Troponin T Hi Sens 6Hr Delta -1.60 ng/L (0-12) L 03/25/22 00:32 NT-Pro-B Natriuret Pep 270 pg/mL (0-125) H 03/24/22 18:13 Total Protein 7.3 g/dL (6.6-8.7) 03/24/22 18:13 Albumin 4.1 g/dL (3.5-5.2) 03/24/22 18:13 Globulin 3.2 g/dL (1.3-4.6) 03/24/22 18:13 Lipase 13 U/L (13-60) 03/24/22 18:13 Vitamin B12 1061 pg/mL (232-1245) 03/25/22 00:32 Folate > 20.0 ng/mL (4.8-37.3) 03/24/22 18:13 TSH 1.03 uIU/mL (0.27-4.20) 03/25/22 00:32 Free T4 1.23 ng/dL (0.82-1.77) 03/25/22 00:32 Urine Color Yellow (Yellow) 03/25/22 01:40 Urine Appearance Clear (CLEAR) 03/25/22 01:40 Urine pH 5 (5-7) 03/25/22 01:40 Ur Specific [place] 1.020 (1.005-1.030) 03/25/22 01:40 Urine Protein 1+ (Negative) H 03/25/22 01:40 Urine Glucose (UA) Norm (Normal) 03/25/22 01:40 Urine Ketones Negative (Negative) 03/25/22 01:40 Urine Blood 2+ (Negative) H 03/25/22 01:40 Urine Nitrate Positive (Negative) H 03/25/22 01:40 Urine Bilirubin Neg (Negative) 03/25/22 01:40 Urine Urobilinogen Norm mg/dL (Negative) 03/25/22 01:40 Ur Leukocyte Esterase Negative (Negative) 03/25/22 01:40 Urine RBC 0-4 /hpf (0-2) H 03/25/22 01:40 Urine WBC 0-4 /hpf (0-5) H 03/25/22 01:40 Ur Squamous Epith Cells 0-4 /hpf (0-5) H 03/25/22 01:40 Amorphous Sediment Not Reportable 03/25/22 01:40 Urine Bacteria 3+ /hpf (NONE) H 03/25/22 01:40 Urine Mucus Trace /hpf 03/25/22 01:40 Vitals Last Vital Signs Temp 97.3 F L 03/26/22 20:02 Pulse 123 H 03/27/22 07:28 Resp 23 H 03/27/22 07:26 BP 137/85 03/26/22 20:02 Pulse Ox 92 03/27/22 07:28 Discharge Plan Discharge Patient Disposition: Hospice - Home Condition: Critical Prescriptions: Continued albuterol sulfate [ProAir HFA] 90 mcg/actuation HFA aerosol inhaler 2 puff INHALATION Q4H PRN (Reason: shortness of breath or wheezing) 30 Days Qty: 1 5RF Discontinued aspirin 81 mg tablet,chewable 81 mg PO QAM 0RF Incruse Ellipta 62.5 mcg/actuation blister with device 1 inh inhalation Q24H Qty: 30 5RF albuterol sulfate 2.5 mg /3 mL (0.083 %) solution for nebulization 2.5 mg INHALATION Q4H PRN (Reason: shortness of breath or wheezing) Qty: 300 5RF loratadine 10 mg tablet 10 mg PO DAILY Qty: 30 5RF hydrochlorothiazide 12.5 mg tablet 12.5 mg PO QAM 30 Days Qty: 30 5RF nitroglycerin [Nitrostat] 0.4 mg tablet, sublingual 0.4 mg SUBLINGUAL Q5M PRN (Reason: Chest Pain) Qty: 30 5RF Rx Instructions: do not exceed 3 doses per episode potassium chloride [Klor-Con 10] 10 mEq tablet extended release 10 meq PO DAILY Qty: 30 5RF [place] Instant Breakfast Liquid 1 ea PO DAILY 0RF Systane (PF) 0.4-0.3 % Dropperette 1 drp OPHTHALMIC (EYE) DAILY PRN (Reason: Dry Eye(S)) 0RF [place] 0.01 % drops 1 drp ophthalmic (eye) BEDTIME PRN (Reason: pressure) 0RF Rx Instructions: right eye pantoprazole [Protonix] 40 mg tablet,delayed release (DR/EC) 40 mg PO QAM 0RF Vitamin B-12 500 mcg Tablet 500 mcg PO DAILY 0RF cyanocobalamin (vitamin B-12) 1,000 mcg/mL solution 1,000 mcg SUBCUT Q30D 0RF No Action (DME) continuous oxygen See Rx Instructions .Route .MEDSUPPLY Qty: 1 0RF Rx Instructions: 99+ lifetime Discharge Orders: Discharge Order (Routine); Ordered 03/27/22 Ordered By: Caleb Johnson Referrals: [facility] ([facility]) [Outside] Mercy Cuevas FNP-C [Primary Care Provider] - Discharge Attestations Time Spent in Discharge Care*: less than 30 min Quality Metrics Clinical Quality Measures [ No reported AMI, CVA or VTE this stay] Coding Level of Care Code Acute Chg FW DC note Diagnoses Acute exacerbation of chronic obstructive airways disease J44.1 Suspected lung cancer R68.89 Acute on chronic respiratory failure with hypoxia and hypercapnia J96.21; J96.22 Smoker F17.200
--- NOTE | 2022-03-27 09:30 | PC.SOCIAL ---
IMM update IMM updated with patient's daughter at bedside. Verbalized an understanding. Copy Pg 2 provided. Initialled, dated, timed, and placed in chart.
== END 2022-03-27 12:42 | disposition hospice, home (50) | DRG 190 ==
LOC: ER 23:53 → MEDSURG 03-25 00:23
PROVIDERS: Family Medicine; Admitting Provider Internal Medicine; Emergency Provider Emergency Medicine; PCP Nurse Practitioner Family; Visit Provider Internal Medicine
DX: J44.1 Chronic obstructive pulmonary disease with (acute) exacerbation (principal); J96.22 Acute and chronic respiratory failure with hypercapnia; J96.21 Acute and chronic respiratory failure with hypoxia; C34.92 Malignant neoplasm of unspecified part of left bronchus or lung; C34.91 Malignant neoplasm of unspecified part of right bronchus or lung; C78.7 Secondary malignant neoplasm of liver and intrahepatic bile duct; E46 Unspecified protein-calorie malnutrition; Z68.1 Body mass index [BMI] 19.9 or less, adult; I25.10 Atherosclerotic heart disease of native coronary artery without angina pectoris; I10 Essential (primary) hypertension; F17.200 Nicotine dependence, unspecified, uncomplicated; K21.9 Gastro-esophageal reflux disease without esophagitis; I27.20 Pulmonary hypertension, unspecified; Z99.81 Dependence on supplemental oxygen; M85.80 Other specified disorders of bone density and structure, unspecified site; K57.90 Diverticulosis of intestine, part unspecified, without perforation or abscess without bleeding; H40.9 Unspecified glaucoma; E78.5 Hyperlipidemia, unspecified; Z79.51 Long term (current) use of inhaled steroids; Z66 Do not resuscitate
CPT/HCPCS: 36600; 51702; 71045; 71275; 74177; 80051; 80053; 81001; 82330; 82607; 82746; 82803; 82805; 83690; 83880; 84439; 84443; 84484; 85025; 85378; 87086; 93005; 94640; 94660; 94762; 96365; 99285; J1956; J2060; J2270; J2930; J7030; J7611; Q9967